=== PATIENT | female | born 2000 | race Caucasian/White ===

== ENCOUNTER 2024-01-31 08:46 | Outpatient (REF) | payer OTHER, SELFPAY ==
--- NOTE | ~2024-01-31 | US_ITS ---
EXAMINATION: US RETROPERITONEAL COMPLETE (RENAL) CLINICAL INFORMATION: Microhematuria, low back pain. COMPARISON: None available. TECHNIQUE: Real-time imaging of the kidneys and bladder. FINDINGS: RIGHT KIDNEY: 9.5 x 4.6 x 4.7 cm (SAG x AP x TRV). The kidney is normal in size, contour, and echogenicity. Renal cortical thickness is normal. No calculi or focal parenchymal lesions. Mild hydronephrosis and proximal right hydroureter.. LEFT KIDNEY: 12.3 x 5.6 x 5.4 cm (SAG x AP x TRV). The kidney is normal in size, contour, and echogenicity. Renal cortical thickness is normal. No calculi or focal parenchymal lesions. Mild hydronephrosis and proximal left hydroureter. BLADDER: Well distended and normal. Bilateral ureteral jets are demonstrated. Prevoid bladder volume is 443 mL. Postvoid bladder volume is 13 mL. US/US retroperitoneal comp IMPRESSION: Bilateral mild hydronephrosis and proximal hydroureter. Electronically signed by: Cheyanne Akins MD 01/31/2024 01:52 PM EDT
== END 2024-01-31 08:47 | disposition home or self-care (01) ==
LOC: HO.UMASIMG 08:46
PROVIDERS: Visit Provider Emergency Medicine
DX: R31.29 Other microscopic hematuria (principal); M54.59 Other low back pain
CPT/HCPCS: 76770